=== PATIENT | female | born 1940 | race Caucasian/White ===

== ENCOUNTER 2020-05-25 19:19 | Emergency (ER) | payer MEDICARE, MEDICAID ==
[2020-05-25] MEDS ORDERED: LORazepam 0.5 MG Tab PO ONE (19:20)
[2020-05-25] MEDS: LORazepam 0.5 MG Tab PO ONE (19:40)
[2020-05-25] MEDS ORDERED: LORazepam 0.5 MG Tab ONE (19:41)
--- NOTE | 2020-05-25 19:45 | EDM.PDOC ---
ED HPI GENERAL MEDICAL PROBLEM - General Chief Complaint: Medication Administration Stated Complaint: HIGH BLOOD PRESSURE Time Seen by Provider: 05/25/20 19:30 Source of Information: Reports: Patient, RN, RN Notes Reviewed History Limitations: Reports: No Limitations - History of Present Illness INITIAL COMMENTS - FREE TEXT/NARRATIVE: Patient presents to the ED via personal vehicle with request to fill lorazepam. She states she has been out of this medication for over one week and is not currently established with any local providers; she states Dr. Duenas in [place] was her PCP, but he is now retired. She reports she feels as though her blood pressure is elevated because she has been off of this medication. She denies vision changes, headache, fever, shaking chills, chest pain, palpitations, shortness of breath, nausea, vomiting, or diarrhea. She states she takes a "water pill" for hypertension and an inhaler for asthma; she denies taking any additional medications. She attests to smoking a pack of cigarettes per day. She denies alcohol or recreational drug use. - Related Data Allergies Allergy/AdvReac Type Severity Reaction Status Date / Time amoxicillin [Amoxicillin] Allergy Muscle Verified 03/23/14 21:10 Weakness erythromycin ethylsuccinate Allergy Hives Verified 03/23/14 22:55 [From [facility] Penicillins Allergy Muscle Verified 03/23/14 21:10 Weakness Tetracyclines Allergy Muscle Verified 03/23/14 21:10 Aches Home Meds: Home Meds Albuterol [Proair HFA] 2 puff INH Q4H PRN 03/23/14 [History] Budesonide/Formoterol Fumarate [Symbicort 80-4.5 Mcg Inhaler] 2 puff INH DAILY 03/23/14 [History] Doxepin [SINEquan] 25 mg PO BID 03/23/14 [History] LORazepam [Ativan] 1 mg PO DAILY 03/23/14 [History] LORazepam [Ativan] 0.5 mg PO BEDTIME 05/25/20 [History] ED ROS GENERAL - Review of Systems Review Of Systems: Comprehensive ROS is negative, except as noted in HPI. ED EXAM, GENERAL - Physical Exam Exam: See Below Exam Limited By: No Limitations General Appearance: Alert, Anxious Eye Exam: Bilateral Eye: EOMI, Normal Inspection, PERRL (4mm) Throat/Mouth: Normal Inspection, Normal Voice, No Airway Compromise Head: Atraumatic, Normocephalic Neck: Normal Inspection, Supple, Non-Tender, Full Range of Motion Respiratory/Chest: No Respiratory Distress, Lungs Clear, Normal Breath Sounds, No Accessory Muscle Use, Chest Non-Tender Cardiovascular: Normal Peripheral Pulses, Regular Rate, Rhythm, No Edema, No Gallop, No JVD, No Murmur, No Rub Peripheral Pulses: 2+: Radial (L), Radial (R) Neurological: Alert, Oriented, CN II-XII Intact, Normal Cognition, Normal Gait, No Motor/Sensory Deficits Psychiatric: Anxious Skin Exam: Warm, Dry, Intact, Normal Color, No Rash. No: Ecchymosis, Erythema, Jaundice, Mottled, Pallor, Petechiae Course - Vital Signs Last Recorded V/S: Last Vital Signs Temp 96.1 F L 05/25/20 19:26 Pulse 119 H 05/25/20 19:26 Resp 24 H 05/25/20 19:26 BP 143/93 H 05/25/20 19:26 Pulse Ox 99 05/25/20 19:26 - Orders/Labs/Meds Meds: Medications Discontinued Medications Generic Name Dose Route Start Last Admin Trade Name Naye PRN Reason Stop Dose Admin Lorazepam 0.5 mg 05/25/20 19:37 05/25/20 19:40 Ativan PO 05/25/20 19:38 0.5 mg ONETIME ONE Administration Lorazepam Confirm 05/25/20 19:41 Ativan Administered 05/25/20 19:42 Dose 0.5 mg .ROUTE .STK-MED ONE - Re-Assessments/Exams Free Text/Narrative Re-Assessment/Exam: 05/25/20 Discussed appropriate medication management with patient, including the need to reestablish with a provider for her ongoing chronic health needs. The patient states she has been to the [facility], but is currently looking for a provider at [facility]. She states she has enough of her blood pressure medication and inhalers. Will treat acute anxiety with Lorazepam 0.5mg x1 right now and Lorazepam 0.5mg for tomorrow as she attempts to establish with a provider. Patient verbalized understanding and agreement with the plan of care. Departure - Departure Time of Disposition: 19:45 Disposition: Home, Self-Care 01 Condition: Good Clinical Impression: Anxiety - Discharge Information *PRESCRIPTION DRUG MONITORING PROGRAM REVIEWED*: Yes () *COPY OF PRESCRIPTION DRUG MONITORING REPORT IN PATIENT ORION: Yes Instructions: Managing Anxiety, Adult Forms: ED Department Discharge Additional Instructions: Rx: Lorazepam 1.) Establish with a primary care provider to discuss your ongoing medication management needs Sepsis Event Note (ED) - Evaluation Sepsis Screening Result: No Definite Risk - Focused Exam Vital Signs: Vital Signs Temp Pulse Resp BP Pulse Ox 05/25/20 19:26 96.1 F L 119 H 24 H 143/93 H 99
== END 2020-05-25 19:53 | disposition home or self-care (01) ==
LOC: DL.ED 19:19
DX: F41.9 Anxiety disorder, unspecified (principal); Z76.0 Encounter for issue of repeat prescription; Z88.0 Allergy status to penicillin; Z88.1 Allergy status to other antibiotic agents; Z79.899 Other long term (current) drug therapy
CPT/HCPCS: 99283; A9270

== ENCOUNTER 2024-11-17 11:28 | Observation (INO) | payer MEDICARE, MEDICAID ==
[2024-11-17 12:09] LABS: BASOPHILS PERCENT AUTO 0.1 % (0.0-1.0); EOSINOPHILS PERCENT AUTO 0.1 % (1.0-3.0); LYMPHOCYTES PERCENT AUTO 7.5 % (20.5-50.1); MONOCYTES PERCENT AUTO 10.8 % (2-8); NEUTROPHILS PERCENT AUTO 81.5 % (42.2-75.2); PLATELET COUNT,PLT 213 10^3/uL (150-450); RED BLOOD CELL COUNT 4.70 10^6/uL (4.2-5.4); WHITE BLOOD CELL COUNT,WBC 10.7 10^3/uL (5.0-10.0)
[2024-11-17 12:37] LABS: B-TYPE NATRIURETIC PEPTIDE,BNP 49 pg/ml (0-100)
[2024-11-17 12:39] LABS: A/G RATIO 0.9; ALANINE AMINOTRANSFERASE,ALT 19 U/L (14-59); ASPARTATE AMNIOTRANSFERASE,AST 17 U/L (15-37); BILIRUBIN TOTAL 0.6 mg/dL (0.2-1.0); BLOOD UREA NITROGEN,BUN 27 mg/dL (7-18); CARBON DIOXIDE,CO2 25 mmol/L (21-32); CREATININE 1.06 mg/dL (0.55-1.02); GLUCOSE RANDOM 149 mg/dL (70-99); PROTEIN TOTAL,TP 7.6 g/dL (6.4-8.2)
[2024-11-17 12:41] LABS: LACTIC ACID 2.7 mmol/L (0.4-2.0)
[2024-11-17 12:46] LABS: INR 1.0 (0.9-1.2); PTT,PARTIAL THROMBOPLSTIN TIME 24.5 SEC (22.0-34.0)
[2024-11-17 12:48] LABS: ESTIMATED GFR 51 mL/min (>=60)
[2024-11-17 12:49] LABS: CHLORIDE,CL 91 mmol/L (98-107); POTASSIUM,K 4.6 mmol/L (3.5-5.1); SODIUM,NA 125 mmol/L (136-145)
[2024-11-17] MEDS ORDERED: Sennosides/Docusate Sodium 50-8.6 MG Tab PO PRN (13:44)
[2024-11-17] MEDS ORDERED: Sodium Chloride 0.9% 10 ML Syringe FLUSH PRN (13:44)
[2024-11-17 14:50] LABS: APPEARANCE,URINE CLEAR (CLEAR); GLUCOSE,URINE NEGATIVE (NEGATIVE); OCCULT BLOOD,URINE TRACE-LYSED (NEGATIVE)
[2024-11-17 15:01] LABS: EPITHELIAL CELLS,URINE FEW /HPF (NOT SEEN)
[2024-11-17] MEDS: Iopamidol 612 MG/ML 100 ML Bottle IVPUSH ONE (15:03)
[2024-11-17] MEDS: Formoterol/Mometasone 200-5 MCG 8.8 GM Inhaler INH SCH (17:49)
[2024-11-17] MEDS: Menthol 10%/Methyl Salicylate 15% 85 GM Tube TOP PRN (19:51)
[2024-11-17] MEDS: Benzocaine/Cetylpyridinium/Menthol Lozenge MUCMEM PRN (20:38)
[2024-11-17] MEDS: methylPREDNISolone Sodium Succinate 40 MG/1 ML SDV IVPUSH SCH (22:04)
[2024-11-17] MEDS: Sodium Chloride 0.9% 10 ML Syringe FLUSH SCH (22:07)
[2024-11-17] MEDS: Ondansetron 4 MG/2 ML SDV IVPUSH PRN (22:13)
[2024-11-18] MEDS: Sodium Chloride 0.9% 10 ML Syringe FLUSH PRN (04:32)
[2024-11-18] MEDS: Furosemide 40 MG/4 ML VIAL IVPUSH ONE (04:32)
[2024-11-18] MEDS: Acetylcysteine 20% 200 MG/ML 30 ML Soln SDV NEB SCH (04:38)
[2024-11-18 05:13] LABS: BASOPHILS PERCENT AUTO 0.1 % (0.0-1.0); EOSINOPHILS PERCENT AUTO 0.0 % (1.0-3.0); LYMPHOCYTES PERCENT AUTO 3.5 % (20.5-50.1); MONOCYTES PERCENT AUTO 3.6 % (2-8); NEUTROPHILS PERCENT AUTO 92.8 % (42.2-75.2); PLATELET COUNT,PLT 198 10^3/uL (150-450); RED BLOOD CELL COUNT 4.56 10^6/uL (4.2-5.4); WHITE BLOOD CELL COUNT,WBC 11.4 10^3/uL (5.0-10.0)
[2024-11-18] MEDS: Heparin Sodium 5,000 Units/ML Vial IVPUSH ONE (05:18)
[2024-11-18] MEDS: Heparin Sodium/0.45% NaCl 25,000 UNITS/500 ML BAG IV SCH (05:21)
[2024-11-18] MEDS: Acetylcysteine 20% 200 MG/ML 30 ML Soln SDV ONE (05:36)
[2024-11-18 05:39] LABS: A/G RATIO 0.9; ALANINE AMINOTRANSFERASE,ALT 21.0 U/L (14-59); ASPARTATE AMNIOTRANSFERASE,AST 20.0 U/L (15-37); BILIRUBIN TOTAL 0.4 mg/dL (0.2-1.0); BLOOD UREA NITROGEN,BUN 25.0 mg/dL (7-18); CARBON DIOXIDE,CO2 23.0 mmol/L (21-32); CHLORIDE,CL 97.0 mmol/L (98-107); CREATININE 0.98 mg/dL (0.55-1.02); EST CRCL DRUG DOSING (CG) 33.45 mL/min; ESTIMATED GFR 57.0 mL/min (>=60); GLUCOSE RANDOM 158.0 mg/dL (70-99); POTASSIUM,K 4.1 mmol/L (3.5-5.1); PROTEIN TOTAL,TP 7.5 g/dL (6.4-8.2); SODIUM,NA 131.0 mmol/L (136-145)
[2024-11-18] MEDS ORDERED: Carboxymethylcellulose Sodium 1% Ophth Gel 0.4 ML UD EYEBOTH SCH (09:00)
== END 2024-11-18 05:50 ==
LOC: DL.ED 11:28 → DL.MS 13:26
PROVIDERS: ADMIT Student in an Organized Health Care Education/Training Program; ATTEND Student in an Organized Health Care Education/Training Program
DX: E87.1 Hypo-osmolality and hyponatremia (principal); I10 Essential (primary) hypertension; F41.9 Anxiety disorder, unspecified; F17.210 Nicotine dependence, cigarettes, uncomplicated; Z88.0 Allergy status to penicillin; Z88.1 Allergy status to other antibiotic agents; Z88.2 Allergy status to sulfonamides; Z88.5 Allergy status to narcotic agent; Z79.899 Other long term (current) drug therapy
CPT/HCPCS: 36415; 51702; 71045; 71260; 80053; 81001; 83036; 83605; 83735; 83880; 84295; 84484; 85025; 85610; 85730; 86140; 87040; 87086; 87186; 87428-QW; 93005; 93010; 94010; 94640; 94664; 96361; 96365; 96367; 96372; 96374; 96375; 96376; 99223; 99238; 99284; 99285-25; A9270-GY; G0378; J0456; J0696; J1644; J1650; J1938; J2405; J2919; J7030; J7050